=== PATIENT | female | born 1980 | race Caucasian/White ===

== ENCOUNTER → 2016-08-19 | Outpatient (CLI) | payer OTHER ==
--- NOTE | 2016-08-20 07:29 | XR ---
EXAMINATION TYPE: XR lumbar spine 1V DATE OF EXAM: 08/19/2016 1:54 PM CLINICAL HISTORY: pain COMPARISON: NONE TECHNIQUE: Frontal, lateral, and oblique images of the lumbar spine are obtained. FINDINGS: There are 5 lumbar type vertebral bodies identified. The lumbar spine shows satisfactory alignment without evidence of acute fracture or dislocation. Vertebral body heights are within normal limits. Disc spaces are well preserved. The overlying soft tissue appears unremarkable. IMPRESSION: No acute fracture or dislocation is seen in the lumbar spine.ICD 10 NO FRACTURE, INITIAL EVALUATION
== END | disposition home or self-care (01) ==
LOC: RADXRYALE 13:34
PROVIDERS: ATTEND Internal Medicine
DX: M54.32 Sciatica, left side (principal)
CPT/HCPCS: 72020

== ENCOUNTER → 2016-11-19 | Outpatient (CLI) | payer OTHER ==
[2016-11-19 17:41] LABS: CH 29.4; HCT 35.6 % (34.0-46.0); HDW 2.35; HGB 12.2 gm/dL (11.4-16.0); MCH 29.6 pg (25.0-35.0); MCHC 34.2 g/dL (31.0-37.0); MCV 86.7 fL (80.0-100.0); Mean Platelet Volume 6.5; RDW 12.8 % (11.5-15.5)
[2016-11-19 17:48] LABS: Glucose 81 mg/dL (74-99); Non-African American GFR(MDRD) >60 (>60 ml/min/1.73 sqM)
[2016-11-19 18:20] LABS: Hepatitis B Surface Ag Index 0.06
[2016-11-21 06:44] LABS: HIV-1/HIV-2 Ab Screen NONREAC (NON REAC)
[2016-11-21 07:25] LABS: Toxoplasma Antibody (IgG) <3.0 IU/mL (<7.2)
== END ==
LOC: LABWHC1 17:02
PROVIDERS: ATTEND Obstetrics & Gynecology
DX: Z34.81 Encounter for supervision of other normal pregnancy, first trimester (principal)
CPT/HCPCS: 36415; 82565; 82947; 85027; 86762; 86777; 86778; 86780; 86850; 86900; 86901; 87340; 87389

== ENCOUNTER → 2017-01-01 | Outpatient (CLI) | payer OTHER ==
[2017-01-04 09:27] LABS: Alpha Fetoprotein 36.6 ng/mL; Alpha Fetoprotein (M.O.M) 1.11 (Negative); B-HCG (M.O.M.) 1.55; Gestational Age (days) 1; Human Chorionic Gonadotropin 53.1 IU/mL; Inhibin A (M.O.M.) 0.94; Interpretation SeeBelow; Maternal Age at EDD (Yrs) 35; Unconjugated Estriol (M.O.M.) 1.66
== END | disposition home or self-care (01) ==
LOC: LABWHC1 12:29
PROVIDERS: ATTEND Obstetrics & Gynecology
DX: Z34.92 Encounter for supervision of normal pregnancy, unspecified, second trimester (principal); Z3A.00 Weeks of gestation of pregnancy not specified
CPT/HCPCS: 36415; 82105; 82677; 84702; 86336

== ENCOUNTER → 2017-03-03 | Outpatient (CLI) | payer OTHER ==
[2017-03-03 12:39] LABS: CHCM 34.3; HCT 31.6 % (34.0-46.0); HDW 2.84; HGB 10.9 gm/dL (11.4-16.0); MCH 30.3 pg (25.0-35.0); MCHC 34.4 g/dL (31.0-37.0); MCV 88.1 fL (80.0-100.0); Mean Platelet Volume 7.3; RBC 3.59 m/uL (3.80-5.40); RDW 13.8 % (11.5-15.5); WBC 11.4 k/uL (3.8-10.6)
== END ==
LOC: LABWHC1 11:27
PROVIDERS: ATTEND Obstetrics & Gynecology
DX: Z34.92 Encounter for supervision of normal pregnancy, unspecified, second trimester (principal); Z3A.00 Weeks of gestation of pregnancy not specified
CPT/HCPCS: 36415; 82950; 85027

== ENCOUNTER 2017-05-10 14:31 | Outpatient (CLI) | payer OTHER ==
[2017-05-10 16:15] VITALS: BP 112/58; PULSE 83; RESP 16; TEMP 97.9
--- NOTE | 2017-05-24 13:03 | P.MSEPDOC ---
Presenting Problems - Arrival Data Date of Arrival on Unit: 05/10/17 Time of Arrival on Unit: 15:30 Mode of Transport: Ambulatory - Complaint OB-Reason for Admission/Chief Complaint: Pain Medical History - Information : 3 Para: 1 Term: 1 : 0 Abortions: Spontaneous or Elective: 0 Number of Living Children: 1 - Gestational Age Gestational Age by NICHOLAS (wks/days): 34 Weeks and 4 Days - History Complications: Prior Review of Systems - Review of Systems Constitutional: No problems Breast: No problems ENT: No problems Cardiovascular: No problems Respiratory: No problems Gastrointestinal: No problems Genitourinary: No problems Musculoskeletal: No problems Neurological: No problems Skin: No problems Vital Signs - Temperature Temperature: 97.9 F Temperature Source: Tympanic - Pulse Right Brachial Pulse Rate: 83 Pulse Assessment Method: Automatic Cuff - Respirations Respiratory Rate: 16 Oxygen Delivery Method: Room Air - Blood Pressure Right Arm Blood Pressure: 112/58 Blood Pressure Mean: 76 Blood Pressure Source: Automatic Cuff Medical Screen Scoring (Pre) - Cervical Exam Dilation: 1-3 cm = 1 Membranes: Intact - Uterine Contractions Frequency: N/A Duration: N/A Intensity: N/A - Maternal Vital Signs Maternal Temperature: N/A Maternal Blood Pressure: N/A Signs of Preeclampsia: N/A Maternal Respirations: N/A - Maternal Trauma Maternal Trauma: N/A - Assessment Heart Rate - NICHD Category: Category I (Normal) = 0 NST: Reactive Position: N/A Station: N/A - Total Score Total Score (Pre): 1 Physician Notification (Pre) - Physician Notified Physician Notified Date: 05/10/17 Physician Notified Time: 15:30 Physician/Practitioner Notifed:: Dr. Portillo Spoke With: Dr. Portillo New Order Received: Yes - Notification Comment Comment: d/c home Disposition - Disposition OB Disposition: Discharge to home Discharge Date: 05/10/17 Discharge Time: 16:16 I agree with the RN Medical Screening Exam: Yes Risk & Benefit of care provided described in d/c instruction: Yes Diagnosis: FALSE LABOR BEFORE 37 COMPLETED WEEKS OF GEST, THIRD TRI
== END 2017-05-10 16:17 | disposition home or self-care (01) ==
LOC: FBPOP 14:31
PROVIDERS: ATTEND Obstetrics & Gynecology
DX: O47.03 False labor before 37 completed weeks of gestation, third trimester (principal); Z3A.34 34 weeks gestation of pregnancy
CPT/HCPCS: 59025; G0463; 99213

== ENCOUNTER 2017-06-14 06:25 | Inpatient (IN) | payer OTHER ==
--- NOTE | 2017-06-13 17:18 | P.HPOB ---
History of Present Illness H&P Date: 06/13/17 Chief Complaint: Repeat section This is a 36-year-old female 3 para 1 with an estimated date of confinement of 06/17/2017, estimated gestational age of 39-4/7 weeks, who presents to labor and delivery for scheduled repeat section. She admits to good movement and has been feeling irregular contractions and pressure. course has been essentially uncomplicated. labs: HIV-nonreactive Toxoplasma-negative Syphilis antibody-nonreactive Random glucose-81 minute Hepatitis B surface antigen-negative Hemoglobin-12.2 Rubella-immune Blood type-O+ Antibody screen-negative Quad screen-within normal limits Obstetrical ultrasound-normal anatomy One hour Glucola-124 Group B streptococcus-negative Obstetrical history: . History of 1 miscarriage and 1 section at term for orbit presentation. Gynecologic history: No history of sexual transmitted diseases. Social history: She is single. She works part-time for the post office. Review of Systems Constitutional: Denies chills, Denies fever Eyes: denies blurred vision, denies pain Ears, nose, mouth and throat: Denies headache, Denies sore throat Cardiovascular: Denies chest pain, Denies shortness of breath Respiratory: Denies cough Gastrointestinal: Reports abdominal pain (Irregular contractions) Genitourinary: Reports pelvic pain, Reports Musculoskeletal: Reports low back pain Integumentary: Denies pruritus, Denies rash Neurological: Denies numbness, Denies weakness Past Medical History Past Medical History: Asthma, GERD/Reflux Additional Past Medical History / Comment(s): "low iron" History of Any Multi-Drug Resistant Organisms: None Reported Past Surgical History: Section Past Anesthesia/Blood Transfusion Reactions: No Reported Reaction Past Psychological History: No Psychological Hx Reported Smoking Status: Former smoker Past Alcohol Use History: None Reported Past Drug Use History: None Reported - Past Family History Mother Family Medical History: Cancer Medications and Allergies Home Medications Medication Instructions Recorded Confirmed Type Albuterol Inhaler [Ventolin Hfa 1 - 2 puff INHALATION Q6HR PRN 05/10/17 History Inhaler] Beclomethasone Dip 80 Mcg/Puff 1 puff INHALATION BID 05/10/17 06/10/17 History [Qvar 80 mcg] Pnv No.95/Ferrous Fum/Folic AC 1 each PO DAILY 06/10/17 06/10/17 History [ Multivitamin Tablet] Singulair(Dose Unkown) 1 tab PO HS 06/10/17 06/10/17 History Allergies Allergy/AdvReac Type Severity Reaction Status Date / Time Penicillins Allergy Unknown Verified 06/10/17 13:56 Childhood Exam Osteopathic Statement: *. No significant issues noted on an osteopathic structural exam other than those noted in the History and Physical/Consult. HEENT: Within normal limits Heart: Regular rate and rhythm Lungs: Clear to auscultation bilaterally Abdomen: Cervix: Fingertip/50%/-2 heart tones: 140s by Doppler Extremities: Negative Homans Assessment and Plan (1) 39 weeks gestation of Status: Acute Code(s): Z3A.39 - 39 WEEKS GESTATION OF SNOMED Code( s): 17860732 (2) Previous delivery affecting Status: Acute Code(s): O34.219 - MATERNAL CARE FOR UNSP TYPE SCAR FROM PREVIOUS DEL SNOMED Code(s): 833144383 Plan: Proceed with scheduled repeat low transverse section. I have discussed the risks, benefits, and alternative therapies for the above- mentioned procedure and for both sedation/anesthesia as well as necessary blood products administration, if indicated, as they pertain to this patient. The patient has indicated her understanding and acceptance of the risks and procedures discussed.
[2017-06-14] MEDS ORDERED: CLINDAMYCIN 900 MG in DEXTROSE 5% IN WATER 50 ML IVPB STA ×2 (06:49)
[2017-06-14] MEDS ORDERED: LACTATED RINGERS 1,000 ML IV ONE (06:49)
[2017-06-14] MEDS ORDERED: LIDOCAINE 1% 20 ML VIAL (10MG/ML) FOR IV START INTRADERMA PRN (06:49)
[2017-06-14] MEDS ORDERED: CITRIC ACID-SODIUM CITRATE 15 ML CUP PO ONE (06:49)
[2017-06-14 07:12] VITALS: BMI 29.4
[2017-06-14 07:27] LABS: Basophils % (A) 0 %; CH 28.8; Eosinophils # (A) 0.2 k/uL (0-0.7); Eosinophils % (A) 2 %; HCT 34.5 % (34.0-46.0); HGB 11.5 gm/dL (11.4-16.0); Luc # (Auto) 0.21; Luc % (Auto) 2; Lymphocytes # (A) 1.9 k/uL (1.0-4.8); Lymphocytes % (A) 18 %; MCH 28.4 pg (25.0-35.0); MCHC 33.3 g/dL (31.0-37.0); MCV 85.2 fL (80.0-100.0); Mean Platelet Volume 7.8; Monocytes # (A) 0.5 k/uL (0-1.0); Monocytes % (A) 5 %; Neutrophils # (A) 7.8 k/uL (1.3-7.7); Neutrophils % (A) 74 %; RBC 4.05 m/uL (3.80-5.40); RDW 14.3 % (11.5-15.5); WBC 10.5 k/uL (3.8-10.6); WBC (Perox) 9.99
[2017-06-14] MEDS ORDERED: NALBUPHINE 10 MG/ML AMPUL ONE (07:55)
[2017-06-14] MEDS ORDERED: MORPHINE SULFATE (PF) 0.3 MG/0.3 ML SYR ONE (07:55)
[2017-06-14] MEDS ORDERED: ONDANSETRON 4 MG/2 ML VIAL ONE (07:55)
[2017-06-14] MEDS ORDERED: KETOROLAC 30 MG/ML 1 ML VIAL ONE (07:55)
[2017-06-14] MEDS ORDERED: OXYTOCIN 10 UNIT/ML 1 ML VIAL ONE (07:55)
--- NOTE | 2017-06-14 08:39 | P.OP ---
Date of Procedure: 06/14/17 Preoperative Diagnosis: 1. Intrauterine at 39-4/7 weeks. 2. History of previous section. Postoperative Diagnosis: Same Procedure(s) Performed: Repeat low transverse section Anesthesia: spinal (Duramorph) Surgeon: Shanti Portillo Modern Languages Professor #1: Quintin Parrish Estimated Blood Loss (ml): 450 Pathology: other (Placenta) Condition: stable Disposition: floor Indications for Procedure: This is a 36-year-old female 3 para 1 at 39-4/7 weeks who presents for scheduled repeat section. I have discussed the risks, benefits, and alternative therapies for the above- mentioned procedure and for both sedation/anesthesia as well as necessary blood products administration, if indicated, as they pertain to this patient. The patient has indicated her understanding and acceptance of the risks and procedures discussed. Operative Findings: A viable female is noted in the vertex presentation an ROT position. Infant scores are 8 at 1 minute and 9 at 5 minutes and weight was 7 lbs. 14 oz. Normal uterus tubes and ovaries are noted. Description of Procedure: The patient is taken to the operating room where she is placed in the dorsal supine position with leftward tilt after spinal Duramorph anesthesia is given. She is prepped and draped in the normal sterile fashion. Skin was tested and found to be adequately anesthetized. A Pfannenstiel skin incision was made through the previous laparotomy scar with a scalpel. A second knife was used to carry the incision down to the underlying layer of fascia. The fascia was nicked in the midline with a scalpel and then extended laterally bilaterally with Weeks scissors. The anterior lip of the fascia was grasped with 2 Sophia clamps and then dissected off the underlying rectus muscle in the midline with Weeks scissors. The inferior aspect of the fascial incision was grasped with 2 Sophia clamps and dissected off the underlying rectus muscle and the midline with Weeks scissors. Next the peritoneum layer was tented up with 2 hemostats and then entered sharply with the scalpel. The incision is extended superiorly and inferiorly with Metzenbaum scissors. Next a DeLee retractor is placed. The vesicouterine peritoneum is entered sharply with Metzenbaum scissors and extended laterally bilaterally with Metzenbaum scissors and then the bladder flap is pushed inferiorly. The lower uterine segment is incised in transverse fashion with the scalpel and then bluntly entered with a hemostat. Clear fluid is noted. The incision was then extended laterally bilaterally with 2 fingers. Next the 's head is delivered through the incision in a right occiput transverse position. Nose and mouth are bulb suctioned. The remainder of the is easily delivered and placed on mother's abdomen. Cord is clamped and cut. is taken to warmer by nursing staff. Uterine fundus is gently massaged and placenta is delivered manually. Uterus is exteriorized and cleared of all clots and debris. Uterine incision is closed with 0 Vicryl suture in a running locked fashion. A second layer of 0 Vicryl suture is used in a running fashion for hemostasis. Once adequate hemostasis as assured, the vesicouterine peritoneum is reapproximated with 2-0 Vicryl suture in a running fashion. Posterior cul-de-sac is suctioned of all clots and debris. Uterus is returned to the abdomen. Incision is noted to be hemostatic. Peritoneal layer is closed with 0 Vicryl suture in a running fashion. Muscle layer is reapproximated with 0 Vicryl suture in interrupted fashion. Fascia layer is then closed with 0 PDS suture with 2 sutures meeting in the midline and the knots buried in either side and in the midline. The subcutaneous tissue was then closed with 2-0 Vicryl suture. Skin layer was then closed with yadira. All sponge and needle counts are correct. The patient is taken to recovery room in stable condition.
[2017-06-14] MEDS ORDERED: LANOLIN CREAM 5 GM TUBE TOPICAL PRN (08:59)
[2017-06-14] MEDS ORDERED: SIMETHICONE 80 MG CHEWABLE PO PRN (08:59)
[2017-06-14] MEDS ORDERED: OXYTOCIN 20 UNITS/1000 ML NS 1,000 ML IV SCH ×2 (08:59→11:15)
[2017-06-14] MEDS ORDERED: Acetaminophen-Codeine 300-30mg TAB PO PRN (08:59)
[2017-06-14] MEDS ORDERED: NALOXONE 0.4 MG/ML 1 ML VIAL IV PRN (08:59)
[2017-06-14] MEDS ORDERED: ACETAMINOPHEN TAB 325 MG TAB PO PRN (08:59)
[2017-06-14] MEDS ORDERED: diphenhydrAMINE 25 MG CAP PO PRN (08:59)
[2017-06-14] MEDS ORDERED: ONDANSETRON 4 MG/2 ML VIAL IVP PRN (08:59)
[2017-06-14] MEDS ORDERED: diphenhydrAMINE 50 MG CAP PO PRN (08:59)
[2017-06-14] MEDS ORDERED: ZOLPIDEM 5 MG TAB PO PRN (08:59)
[2017-06-14] MEDS ORDERED: diphenhydrAMINE 50 MG/ML 1 ML VIAL IVP PRN ×2 (08:59)
[2017-06-14] MEDS ORDERED: METOCLOPRAMIDE 5 MG/ML 2 ML VIAL IVP PRN (08:59)
[2017-06-14] MEDS: BUDESONIDE 0.5 MG/2 ML NEBU INHALATION SCH ×2 (10:56→19:58)
[2017-06-14] MEDS: SENNOSIDES-DOCUSATE SODIUM 1 EACH TAB PO SCH ×2 (11:02→20:25)
[2017-06-14] MEDS: LACTATED RINGERS 1,000 ML IV SCH ×2 (11:03→20:25)
[2017-06-14] MEDS: KETOROLAC 30 MG/ML 1 ML VIAL IVP PRN ×2 (15:51→23:06)
[2017-06-14] MEDS: ALBUTEROL NEBULIZED 2.5 MG/3 ML INHALATION PRN (19:58)
[2017-06-14] MEDS: MONTELUKAST 10 MG TAB PO SCH (20:26)
[2017-06-15 05:48] LABS: Basophils % (A) 0 %; CH 28.7; CHCM 33.2; Eosinophils # (A) 0.2 k/uL (0-0.7); Eosinophils % (A) 2 %; HCT 30.7 % (34.0-46.0); HDW 3.18; Luc # (Auto) 0.19; Luc % (Auto) 2; Lymphocytes # (A) 1.7 k/uL (1.0-4.8); Lymphocytes % (A) 19 %; MCH 28.4 pg (25.0-35.0); MCHC 32.6 g/dL (31.0-37.0); Mean Platelet Volume 7.9; Monocytes # (A) 0.5 k/uL (0-1.0); Monocytes % (A) 6 %; Neutrophils # (A) 6.2 k/uL (1.3-7.7); Neutrophils % (A) 71 %; RBC 3.53 m/uL (3.80-5.40); RDW 14.3 % (11.5-15.5); WBC 8.8 k/uL (3.8-10.6)
[2017-06-15] MEDS: BUDESONIDE 0.5 MG/2 ML NEBU INHALATION SCH ×2 (07:50→20:23)
--- NOTE | 2017-06-15 08:29 | P.PN ---
Progress Note - Text Date: 06/15/2017, time: 0707 The patient is status post section Vital signs stable VAS:[ 0-10] Patient has no complaints of pain. The patient incurred some minimal itching yesterday, this itching is now subsiding. Pain meds to be managed by service.
[2017-06-15] MEDS: Acetaminophen-Codeine 300-30mg TAB PO PRN ×3 (08:36→20:43)
[2017-06-15] MEDS: SENNOSIDES-DOCUSATE SODIUM 1 EACH TAB PO SCH ×2 (08:37→20:43)
--- NOTE | 2017-06-15 08:55 | P.PNOBGPC ---
Subjective - Subjective Principal diagnosis: S/P section postop day #1 Interval history: Patient is doing well. She is ambulating. She is breast-feeding. Lochia is decreasing. Pain is fairly well controlled at this point. She is passing flatus and bowel movement. Patient reports: Reports appetite normal, Reports voiding normally, Reports pain well controlled, Reports ambulating normally : doing well, nursing well Objective - Vital Signs Latest vital signs: Vital Signs Temp Pulse Pulse Resp BP Pulse Ox 06/15/17 04:00 98.1 F 80 18 121/70 06/15/17 00:00 98.0 F 84 18 121/64 06/14/17 20:14 93 06/14/17 20:03 89 06/14/17 20:00 98.1 F 82 18 121/74 06/14/17 16:30 20 06/14/17 16:00 98.3 F 98 20 126/63 06/14/17 12:00 97.6 F 89 16 118/80 99 06/14/17 10:41 97.6 F 77 16 124/56 100 06/14/17 10:11 84 16 122/58 99 06/14/17 09:41 80 16 112/53 99 06/14/17 09:26 92 16 110/54 98 06/14/17 09:11 75 16 116/56 99 06/14/17 08:56 78 16 118/57 98 Intake and Output 06/14/17 06/15/17 06/15/17 22:59 06:59 14:59 Output Total 1100 850 Balance -1100 -850 Output: Urine 1100 850 Other: # Voids 2 2 - Exam Extremities: Present: normal. Absent: tenderness, edema Abdomen: Present: normal appearance, soft (Positive bowel sounds 4). Absent: distention, tenderness Incision: Present: normal, dry, intact. Absent: erythematous Uterus: Present: normal, firm. Absent: tenderness - Labs Labs: Abnormal Lab Results - Last 24 Hours (Table) 06/15/17 Range/Units 05:29 RBC 3.53 L (3.80-5.40) m/uL Hgb 10.0 L D (11.4-16.0) gm/dL Hct 30.7 L (34.0-46.0) % Assessment and Plan Assessment: Impression is status post repeat section postoperative day #1. (1) 39 weeks gestation of Current Visit: Yes Status: Acute Code(s): Z3A.39 - 39 WEEKS GESTATION OF SNOMED Code(s): 47250078 (2) Previous delivery affecting Current Visit: Yes Status: Acute Code(s): O34.219 - MATERNAL CARE FOR UNSP TYPE SCAR FROM PREVIOUS DEL SNOMED Code(s): 436752125 Plan: Plan is to continue with postoperative care.
[2017-06-15] MEDS: IBUPROFEN 600 MG TAB PO PRN ×2 (11:40→18:07)
[2017-06-15] MEDS: ALBUTEROL NEBULIZED 2.5 MG/3 ML INHALATION PRN (20:23)
[2017-06-15] MEDS: MONTELUKAST 10 MG TAB PO SCH (20:44)
[2017-06-16] MEDS: Acetaminophen-Codeine 300-30mg TAB PO PRN ×3 (01:19→11:57)
[2017-06-16] MEDS: BUDESONIDE 0.5 MG/2 ML NEBU INHALATION SCH (07:49)
[2017-06-16] MEDS: SENNOSIDES-DOCUSATE SODIUM 1 EACH TAB PO SCH (08:11)
[2017-06-16] MEDS: IBUPROFEN 600 MG TAB PO PRN ×2 (08:11)
--- NOTE | 2017-06-16 09:11 | P.DS ---
Providers Date of admission: 06/14/17 06:25 Expected date of discharge: 06/16/17 Attending physician: Shanti Portillo Primary care physician: Solange Adair - Discharge Diagnosis(es) (1) 39 weeks gestation of Current Visit: Yes Status: Acute (2) Previous delivery affecting Current Visit: Yes Status: Acute Hospital Course: This is a 36-year-old female 3 para 1 at 39-4/7 weeks who presented for scheduled repeat section. She underwent a repeat low transverse section under spinal Duramorph anesthesia on 06/14/2017 and delivered a viable female infant with scores of 8 at 1 minute and 9 at 5 minutes and weight of 7 lbs. 14 oz. Her post operative and course was uncomplicated. Lochia is decreasing. Pain is fairly well controlled with ibuprofen and Tylenol 3. She is breast-feeding. She is passing flatus and bowel movement. Vital signs are stable. Abdomen is soft with fundus firm and nontender. Incision is clean dry and intact. Extremities show negative Homans. Impression is status post repeat section postoperative day # 2. Plan is to discharge home today. Routine postoperative and instructions are given. She is advised to follow up in the office in approximately one week for a postoperative check and in 6 weeks for check. [place] will be removed and Steri-Strips placed prior to discharge. She will be given prescriptions for ibuprofen and Tylenol 3. She states she has a breast pump at home. She is advised to call the office if she has any further questions or concerns prior to her appointment times. Procedures: Repeat low transverse section on 06/14/2017 Patient Condition at Discharge: Stable Plan - Discharge Summary New Discharge Prescriptions: New Acetaminophen-Codeine 300-30mg [Tylenol w/codeine #3] 1 each PO Q4HR PRN #30 tab PRN Reason: Mild Pain Ibuprofen [Motrin] 600 mg PO Q6HR PRN #60 tab PRN Reason: Mild Pain Or Fever >= 100.5 Continue Beclomethasone Dip 80 Mcg/Puff [Qvar 80 mcg] 1 puff INHALATION BID Albuterol Inhaler [Ventolin Hfa Inhaler] 1 - 2 puff INHALATION Q6HR PRN PRN Reason: yes Pnv No.95/Ferrous Fum/Folic AC [ Multivitamin Tablet] 1 each PO DAILY Singulair(Dose Unkown) 1 tab PO HS Discharge Medication List Albuterol Inhaler [Ventolin Hfa Inhaler] 1 - 2 puff INHALATION Q6HR PRN [History] Beclomethasone Dip 80 Mcg/Puff [Qvar 80 mcg] 1 puff INHALATION BID 05/10/17 [ History] Pnv No.95/Ferrous Fum/Folic AC [ Multivitamin Tablet] 1 each PO DAILY [History] Singulair(Dose Unkown) 1 tab PO HS 06/10/17 [History] Acetaminophen-Codeine 300-30mg [Tylenol w/codeine #3] 1 each PO Q4HR PRN #30 tab 06/16/17 [Rx] Ibuprofen [Motrin] 600 mg PO Q6HR PRN #60 tab 06/16/17 [Rx] Follow up Appointment(s)/Referral(s): Shanti Portillo DO [Doctor of Osteopathic Medicine] - 1 Week (1 week po check 6 week PP check) Activity/Diet/Wound Care/Special Instructions: Instructions 1. Do not begin any exercise program for 3 weeks. 2. Do not resume sexual relations for 3 weeks or longer if uncomfortable. 3. You may take tub baths or showers at any time. 4. You may use tampons if desired after 3 weeks. 5. Keep the area of episiotomy (stitches) clean and dry. 6. If you are not nursing, wear a good fitting, supportive bra during the day and limit fluid intake for at least 1 week to prevent breast engorgement. 7. Call the office, [phone], within the next week to make appointment for your 6 week checkup if it has not already been made. 8. Report any of the following occurrences to the doctor promptly: a. Heavy, excessive bleeding b. Chills, fever c. Burning or frequency of urination d. Pain or redness and breasts if nursing e. Increasing pain or swelling in episiotomy (stitches). In addition to the above instructions, the following additional should be followed: 1. No heavy lifting or straining (exercising) until after 6 week checkup. 2. Keep abdominal incision clean and dry: You may wear a dressing if more comfortable. 3. Make office appointment for 10 days after going home or as instructed by her doctor. Discharge Disposition: HOME SELF-CARE
[2017-06-16 13:43] VITALS: BP 116/67; PULSE 85; RESP 17; TEMP 97.9
== END 2017-06-16 13:15 | disposition home or self-care (01) | DRG 540 ==
LOC: 4FBP 06:25
PROVIDERS: ADMIT Obstetrics & Gynecology; ATTEND Obstetrics & Gynecology
PROC: 10D00Z1 Extraction of Products of Conception, Low, Open Approach (ICD-10-PCS; principal; 2017-06-14 08:07)
DX: O34.211 Maternal care for low transverse scar from previous cesarean delivery (principal); J45.909 Unspecified asthma, uncomplicated; Z37.0 Single live birth; O99.52 Diseases of the respiratory system complicating childbirth; O99.62 Diseases of the digestive system complicating childbirth; K21.9 Gastro-esophageal reflux disease without esophagitis; Z3A.39 39 weeks gestation of pregnancy; Z87.891 Personal history of nicotine dependence; Z88.0 Allergy status to penicillin
CPT/HCPCS: 85025; 86850; 86900; 86901; 88307; 94640

== ENCOUNTER → 2019-01-04 | Outpatient (CLI) | payer OTHER ==
--- NOTE | 2019-01-04 14:29 | MM ---
Reason for exam: screening (asymptomatic). Baseline mammogram. History: Patient had first child at age 32. Physical Findings: Nurse did not find any significant physical abnormalities on exam. (Nurse MJ) MG 3D Screening Mammo W/Cad Bilateral CC and MLO view(s) were taken. No prior studies available for comparison. The breast tissue is extremely dense which could obscure a lesion on mammography. No suspicious abnormality. ASSESSMENT: Negative, BI-RAD 1 RECOMMENDATION: Routine screening mammogram of both breasts in 1 year.
== END | disposition home or self-care (01) ==
LOC: RADMAMWWP 12:52
PROVIDERS: ATTEND Obstetrics & Gynecology
DX: Z12.31 Encounter for screening mammogram for malignant neoplasm of breast (principal)
CPT/HCPCS: 77063; 77067

== ENCOUNTER → 2020-06-11 | Outpatient (CLI) | payer OTHER ==
--- NOTE | 2020-06-12 09:53 | MM ---
Reason for exam: screening (asymptomatic). Last mammogram was performed 1 year and 5 months ago. History: Patient had first child at age 32. Physical Findings: A clinical breast exam by your physician is recommended on an annual basis and results should be correlated with mammographic findings. MG 3D Screening Mammo W/Cad Bilateral CC and MLO view(s) were taken. Prior study comparison: January 04, 2019, bilateral MG 3d screening mammo w/cad. The breast tissue is heterogeneously dense. This may lower the sensitivity of mammography. There is no discrete abnormality. No significant changes when compared with prior studies. ASSESSMENT: Negative, BI-RAD 1 RECOMMENDATION: Routine screening mammogram of both breasts in 1 year.
== END | disposition home or self-care (01) ==
LOC: RADMAMWWP 16:43
PROVIDERS: ATTEND Obstetrics & Gynecology
DX: Z12.31 Encounter for screening mammogram for malignant neoplasm of breast (principal)
CPT/HCPCS: 77063; 77067

== ENCOUNTER → 2021-08-14 | Outpatient (CLI) | payer OTHER ==
--- NOTE | 2021-08-14 10:41 | MM ---
Reason for exam: screening (asymptomatic). Last mammogram was performed 1 year and 2 months ago. History: Patient had first child at age 32. Physical Findings: A clinical breast exam by your physician is recommended on an annual basis and results should be correlated with mammographic findings. MG 3D Screening Mammo W/Cad Bilateral CC, MLO, and XCCL view(s) were taken. Prior study comparison: June 11, 2020, bilateral MG 3d screening mammo w/cad. January 04, 2019, bilateral MG 3d screening mammo w/cad. The breast tissue is heterogeneously dense. This may lower the sensitivity of mammography. There is no discrete abnormality. ASSESSMENT: Negative, BI-RAD 1 RECOMMENDATION: Routine screening mammogram of both breasts in 1 year.
== END | disposition home or self-care (01) ==
LOC: RADMAMWWP 08:29
PROVIDERS: ATTEND Obstetrics & Gynecology
DX: Z12.31 Encounter for screening mammogram for malignant neoplasm of breast (principal)
CPT/HCPCS: 77063; 77067

== ENCOUNTER → 2023-03-25 | Outpatient (CLI) | payer OTHER ==
--- NOTE | 2023-03-26 08:17 | MM ---
Reason for Exam: Screening (asymptomatic). Last mammogram was performed 1 year(s) and 7 month(s) ago. Patient History: Menarche at age 13. First Full-Term at age 32. Late child-bearing (after 30). Risk Values: Adamaris 5 year model risk: 0.8%. NCI Lifetime model risk: 13.5%. Prior Study Comparison: 01/04/2019 Bilateral Screening Mammogram, [facility]. 06/11/2020 Bilateral Screening Mammogram, [facility]. 08/14/2021 Bilateral Screening Mammogram, [facility]. Tissue Density: The breast tissue is heterogeneously dense. This may lower the sensitivity of mammography. Findings: Analyzed By CAD. There is no suspicious group of microcalcifications or new suspicious mass in either breast. Overall Assessment: Negative, BI-RAD 1 Management: Screening Mammogram of both breasts in 1 year. A clinical breast exam by your physician is recommended on an annual basis and results should be correlated with mammographic findings. Note on Adamaris scores and lifetime risk: 1. A Adamaris score greater than 3% is considered moderate risk. If this is the case, consider specialist referral to assess eligibility for a risk reducing agent. If overall lifetime risk for the development of breast cancer is 20% or higher, the patient may qualify for future screening with alternating mammogram and breast MRI. Electronically signed and approved by: Amado Barrera D.O.
== END | disposition home or self-care (01) ==
LOC: RADMAMWWP 15:58
PROVIDERS: ATTEND Family Medicine
DX: Z12.31 Encounter for screening mammogram for malignant neoplasm of breast (principal)
CPT/HCPCS: 77063; 77067

== ENCOUNTER → 2024-02-24 | Outpatient (CLI) | payer OTHER ==
--- NOTE | 2024-02-24 10:33 | CT ---
EXAMINATION TYPE: CT brain wo con DATE OF EXAM: 02/24/2024 COMPARISON: None HISTORY: head injury, blurred vision, dizziness CT DLP: 1090.40 mGycm. Automated Exposure Control for Dose Reduction was Utilized. TECHNIQUE: CT scan of the head is performed without contrast. FINDINGS: Artifact limits assessment for subtle hemorrhage along the periphery of the brain. Grossly no acute intracranial hemorrhage, mass effect, or midline shift identified. The The globes are intact and the visualized sinuses are clear. Low-lying cerebellar tonsils only partially included in the [id number]. Recommend MRI to assess f or Chiari I malformation. Ventricular system is prominent centrally which may represent mild hydrocep halus. Result exam discussed with Dr. Vale supine at 10:28 AM 02/24/2024 with recommendation for MRI brain. IMPRESSION: 1. No acute intracranial hemorrhage, mass effect, or midline shift is seen. 2. Low-lying cerebellar tonsils. Chiari I malformation in the differential diagnosis. Region of inter est only partially included in the [id number]. Recommend follow-up MRI. 3. There is mild central ventricular dilation. Mild hydrocephalus in the differential diagnosis. MRI recommended.
== END | disposition home or self-care (01) ==
LOC: RADCTMAIN 08:41
PROVIDERS: ATTEND Family Medicine
DX: S09.90XA Unspecified injury of head, initial encounter (principal); G93.5 Compression of brain; I51.7 Cardiomegaly; G91.9 Hydrocephalus, unspecified
CPT/HCPCS: 70450

== ENCOUNTER → 2024-02-24 | Outpatient (CLI) | payer OTHER ==
--- NOTE | 2024-02-27 12:57 | MR ---
EXAMINATION TYPE: MR brain wo con DATE OF EXAM: 02/24/2024 6:08 PM CLINICAL INDICATION:Female, 43 years old with history of G91.0, S09.90XA; PHH, Hit her head very hard on a towel bar 1 week ago above left eye and lateral, Visual changes, Abn CT done today in Pacs COMPARISON: None TECHNIQUE: Multi planar, multi sequence imaging was performed through the brain including: T1, T2, In version recovery, Diffusion weighted imaging, and gradient echo imaging. No gadolinium was given. FINDINGS: The cerebellar tonsils extend below the foramen magnum up to 4 mm on the right and 3 mm on the left. Mild dilation of lateral ventricles bilaterally. No evidence for transependymal flow to sug gest hydrocephalus. The ruby-white junctions, ventricular system, basal cisterns appear unremarkable. . Midline structures show no abnormality. Diffusion-weighted imaging shows no evidence of restrict ed diffusion. The susceptibility weighted images do not reveal any evidence for micro-hemorrhage. The bone marrow signal is within normal limits. Paranasal sinuses and mastoid air cells: No significant paranasal sinus disease. Visualized orbits: Orbital contents are intact. IMPRESSION: 1. No evidence of intracranial mass or acute/subacute infarct. No evidence for fracture or intracrani al hemorrhage. 2. Mild dilation of the ventricular system 2. Mild cerebellar tonsillar ectopia bilaterally.
== END | disposition home or self-care (01) ==
LOC: RADMRIMAIN 17:10
PROVIDERS: ATTEND Family Medicine
DX: S09.90XA Unspecified injury of head, initial encounter (principal); G91.0 Communicating hydrocephalus; G93.89 Other specified disorders of brain
CPT/HCPCS: 70551

== ENCOUNTER → 2024-04-03 | Outpatient (CLI) | payer OTHER ==
--- NOTE | 2024-04-04 11:44 | MM ---
Reason for Exam: Screening (asymptomatic). Last mammogram was performed 1 year(s) and 1 month(s) ago. Patient History: Menarche at age 13. First Full-Term at age 32. Late child-bearing (after 31). Patient has history of breast feeding. Last menstrual period: 03/03/2024 Risk Values: Adamaris 5 year model risk: 0.9%. NCI Lifetime model risk: 13.4%. Prior Study Comparison: 01/04/2019 Bilateral Screening Mammogram, [facility]. 06/11/2020 Bilateral Screening Mammogram, [facility]. 08/14/2021 Bilateral Screening Mammogram, [facility]. 03/25/2023 Bilateral MG 3D screening mammo w/cad, [facility]. Tissue Density: The breasts are extremely dense, which lowers the sensitivity of mammography. Findings: Analyzed By CAD. There is no suspicious group of microcalcifications or new suspicious mass in either breast. Overall Assessment: Negative, BI-RAD 1 Management: Screening Mammogram of both breasts in 1 year. . Patient should continue monthly self-breast exams. A clinical breast exam by your physician is recommended on an annual basis. This exam should not preclude additional follow-up of suspicious palpable abnormalities. Note on Adamaris scores and lifetime risk: 1. A Adamaris score greater than 3% is considered moderate risk. If this is the case, consider specialist referral to assess eligibility for a risk reducing agent. 2. If overall lifetime risk for the development of breast cancer is 20% or higher, the patient may qualify for future screening with alternating mammogram and breast MRI. Electronically signed and approved by: Danilo Chavez M.D. Radiologis
== END | disposition home or self-care (01) ==
LOC: RADMAMWWP 12:34
PROVIDERS: ATTEND Family Medicine
DX: Z12.31 Encounter for screening mammogram for malignant neoplasm of breast (principal)
CPT/HCPCS: 77063; 77067

== ENCOUNTER → 2024-04-29 | Outpatient (CLI) | payer OTHER ==
--- NOTE | 2024-04-29 10:29 | MR ---
EXAMINATION TYPE: MR cspine/tspine/lspine wo con DATE OF EXAM: 04/29/2024 COMPARISON: None. MRI brain 02/24/2024 reviewed. HISTORY: Abn CT brain, chiari malformation, evaluating for syrinx. No current symptoms. CONTRAST: Performed utilizing 0 mL intravenous Gadavist gadolinium contrast. TECHNIQUE: Multiplanar multiecho imaging on a 3.0 Alisa magnet is performed through the cervical spin e. FINDINGS: The craniovertebral junction is normal. Significant descent into the spinal canal is not ap parent. There is some mild descent of the left cerebellar tonsils up to 0.5 cm which can be normal. No foramen magnum crowding medullary kinking is evident. Vertebral body alignment is normal. No cer vical cord syrinx is evident. No cord contact or cord compression evident. Disc desiccation is presen t. C7-T1: No focal disc herniation or significant disc bulge is evident. No spinal canal stenosis or n eural foraminal stenosis is present. C6-7: No focal disc herniation or significant disc bulge is evident. No spinal canal stenosis or raegan ral foraminal stenosis is present. C5-6: Some mild left paracentral to left lateral impression on the thecal sac is present may be some mild focal bulging of the disc. No spinal canal stenosis or neural foraminal stenosis is present. C4-5: No focal disc herniation or significant disc bulge is evident. No spinal canal stenosis or raegan ral foraminal stenosis is present. C3-4: No focal disc herniation or significant disc bulge is evident. No spinal canal stenosis or raegan ral foraminal stenosis is present. C2-3: No focal disc herniation or significant disc bulge is evident. No spinal canal stenosis or raegan ral foraminal stenosis is present. IMPRESSION: 1. Mild left paracentral thecal sac compression at C5-6 disc herniation. EXAMINATION TYPE: MR cspine/tspine/lspine wo con DATE OF EXAM: 04/29/2024 COMPARISON: None HISTORY: Abn CT brain, chiari malformation, evaluating for syrinx. No current symptoms. CONTRAST: Performed utilizing 0 mL intravenous Gadavist gadolinium contrast. TECHNIQUE: Multiplanar, multiecho imaging on a 3.0 Alisa magnet is performed through the thoracic spi ne. Spinal cord maintains normal signal through its visualized course. No cord syrinx is evident. There is exaggeration of thoracic kyphosis. Focal disc herniation is not identified. Spinal cord main tains normal signal. No cord syrinx is evident Vertebral body heights are preserved. Disc heights are preserved. Disc hydration levels are preserved. No spinal canal stenosis is evident. IMPRESSION: 1. Normal MRI thoracic spine. EXAMINATION TYPE: MR cspine/tspine/lspine wo con DATE OF EXAM: 04/29/2024 COMPARISON: None HISTORY: Abn CT brain, chiari malformation, evaluating for syrinx. No current symptoms. CONTRAST: 0 mL intravenous Gadavist. TECHNIQUE: Multiplanar, multisequence images of the lumbar spine were acquired. FINDINGS: Cord terminates at the L1 level. Disc heights appear preserved. Vertebral body heights are preserved. L5-S1: No significant disc bulge or disc herniation. Disc desiccation is present. No spinal canal denise nosis. L4-L5: No significant disc bulge or disc herniation. Disc desiccation is present. No spinal canal denise nosis. No foraminal stenosis. Neural foramen are patent.. L3-L4: No significant disc bulge or disc herniation. Disc desiccation is present. No spinal canal st enosis. No foraminal stenosis. L2-L3: No significant disc bulge or disc herniation. No spinal canal stenosis. No foraminal stenosi s. L1-L2: No significant disc bulge or disc herniation. No spinal canal stenosis. No foraminal stenosi s. T12-L1: No significant disc bulge or disc herniation. No spinal canal stenosis. No foraminal stenos is. IMPRESSION: 1. No suspicious acute changes lumbar spine. 2. Mild disc desiccation L3-4 through L5-S1. [facility], Workstation: [facility], 04/29/2024 10:27 AM
== END | disposition home or self-care (01) ==
LOC: RADMRIMAIN 08:06
PROVIDERS: ATTEND Neurological Surgery
DX: Q07.9 Congenital malformation of nervous system, unspecified
CPT/HCPCS: 72141; 72146; 72148